=== PATIENT | female | born 1980 | race Caucasian/White ===

== ENCOUNTER 2016-11-19 03:22 | Emergency (ER) | payer BC ==
[~2016-11-19] VITALS: Ht 165.1 cm; Wt 6.5 kg
--- OUTSIDE RECORDS SUMMARY | 2016-11-19 03:26 | XMS REPORT | Summary of Care ---
Author Author Yimi Leong P.T. Organization Unknown Address [address] [place], [place] [id number] Phone Unavailable Care Team Providers Care Patient Relations Director Name Role Phone Monie Mila Unavailable Unavailable Donald Leong P.T. Unavailable Unavailable Shubham Camejo M.D. Unavailable Unavailable Tati Hunt, Jeb Unavailable Unavailable Jeb Duffy Unavailable Unavailable Unavailable Unavailable Functional Status Name Dates Details Functional status health issues are not documented Status: Name Dates Details Cognitive status health issues are not documented Status: Problems Name Dates Details Preventative health care (V70.0, Z00.00) Status: Active Allergic rhinitis (477.9, J30.9) Status: Active Well adult exam (V70.0, Z00.00) Status: Active Frontal sinusitis (473.1, J32.1) Status: Active Acute sinusitis (461.9, J01.90) Status: Active Right shoulder pain (719.41, M25.511) Status: Active Medications Name Dates Details ZyrTEC Allergy 10 MG Oral Capsule 1 q day prn Jeb Duffy M.D. * Start 28-Sep-2013 Active Fluticasone Propionate 50 MCG/ACT Nasal Suspension USE 1 SPRAY IN EACH NOSTRIL TWICE DAILY. * Quantity: 1 Refills: 11 Jeb Duffy M.D. * Start 27-Apr-2015 Active Doxycycline Hyclate 100 MG Oral Tablet TAKE 1 TABLET TWICE DAILY. * Quantity: 10 Refills: 0 Monie Mila * Start 16-May-2015 Active Azithromycin 250 MG Oral Tablet TAKE 2 TABLETS ON DAY 1 THEN TAKE 1 TABLET A DAY FOR 4 DAYS. * Quantity: 1 Refills: 1 Jeb Duffy M.D. * Start 15-Feb-2016 Active Cyclobenzaprine HCl - 10 MG Oral Tablet TAKE 1 TABLET Bedtime PRN muscle spasm * Quantity: 15 Refills: 0 Jace Camejo M.D. * Start 25-May-2016 Active PredniSONE 20 MG Oral Tablet 3tabs daily for 2 days, 2 tabs for 2 days, 1 tab for 2 days, 1/2 tab daily for 4 days * Quantity: 15 Refills: 0 Jace Camejo M.D. * Start 25-May-2016 Active TraMADol HCl - 50 MG Oral Tablet TAKE 1 TABLET EVERY 4 TO 6 HOURS NEEDED FOR PAIN. * Quantity: 25 Refills: 0 Jace Camejo M.D. * Start 25-May-2016 Active Allergies and Adverse Reactions Name Dates Details Amoxicillin TABS (Allergy) Reaction: Anaphylaxis (Severe) Status: Active Past Medical History Name Dates Details History of Back sprain (847.9) Status: Resolved History of sinusitis (V12.69, Z87.09) Status: Resolved Procedures Procedure Dates Details History of Section Procedures not documented Immunization Name Dates Details Diphtheria-Tetanus Toxoids 6.7-5 LFU/0.5ML INJ on: 29-Aug-2000 Family History Name Dates Details Family history of coronary arteriosclerosis (V17.3, Z82.49) Comments: Family History Status: Active Family history of colon cancer (V16.0, Z80.0) Comments: Family History Status: Active Family history of malignant neoplasm of cervix uteri (V16.49, Z80.49) Comments: Family History Status: Active Social History Name Dates Details Unknown if ever smoked Vital Signs Date Test Result Details 25-May-2016 13:05 BP Systolic 132 mm[Hg] Status: Comments: Location: ; Position: BP Diastolic 76 mm[Hg] Status: Comments: Location: ; Position: Temperature 97.7 f Status: Comments: Method: Heart Rate 85 /min Status: Comments: Location: ; Physical Findings 99 Status: Comments: O2 Saturation Results Date Description Value Details Results not documented Plan of Care Name Dates Details Planned Observations Planned Goals not documented Planned Encounters Appointment; Provider: Radha HankinsTYessenia On 13-Jun-2016 16:30 Appointment; Provider: Radha HankinsTYessenia On 11-Jun-2016 16:30 Instructions Name Dates Details Instructions not documented Encounters Appointment; Jace Camejo M.D. Encounter Diagnosis: Problem not documented On 25-May-2016 12:55 Appointment; Jeb Duffy M.D. Encounter Diagnosis: Problem not documented On 15-Feb-2016 13:49 Appointment; Mila Lomax Encounter Diagnosis: Problem not documented On 16-May-2015 17:55 Appointment; Jeb Duffy M.D. Encounter Diagnosis: Problem not documented On 27-Apr-2015 15:00
--- OUTSIDE RECORDS SUMMARY | 2016-11-19 03:27 | XMS REPORT | Summary of Care ---
Author Author Jeb Duffy M.D. Organization Unknown Address [address] [place], [place] [id number] Phone Unavailable Care Team Providers Care Business Analytics Faculty Member Name Role Phone Nae Masterson APRN Unavailable Unavailable Jeb Duffy M.D. Unavailable Unavailable Jeb Duffy PP Unavailable Unavailable Unavailable Functional Status Functional Status Health Issues* Name Dates Details Functional status health issues are not documented Status: Cognitive Status Health Issues* Name Dates Details Cognitive status health issues are not documented Status: Problems Name Dates Details Sinusitis (473.9, J32.9) Status: Active Back sprain (847.9) Status: Active Preventative health care (V70.0, Z00.00) Status: Active Medications Name Dates Details Cyclobenzaprine HCl - 10 MG Oral Tablet 1/2 -1 tablet three times daily as needed for pain. Quantity: 15 Nae Masterson TOOL DISPATCHER* Started 12-Oct-2013 ActiveZyrTEC Allergy 10 MG Oral Capsule 1 q day prn * Refills: 0 Jeb Duffy M.D.* Started 28-Sep-2013 Active Allergies and Adverse Reactions Name Dates Details Amoxicillin TABS Reaction: Anaphylaxis (Severe) Status: Active Procedures Procedure Dates Details History of Section CBC w/ Auto Diff 7150 Ordered:10-Apr-2015 Comprehensive Metabolic Panel 1212 Ordered:10-Apr-2015 Urinalysis, reflex to Micro and Culture ([facility]) 8016 Ordered:Mar-2015 LIPID PROFILE 1184 Ordered:10-Apr-2015 Immunization Name Dates Details Diphtheria-Tetanus Toxoids 6.7-5 LFU/0.5ML Intramuscular Injectable Administered on:29-Aug-2000 Family History Unknown Family Member* Name Dates Details Family history of coronary arteriosclerosis (V17.3, Z82.49) Comments: Family History Status: Active Family history of colon cancer (V16.0, Z80.0) Comments: Family History Status: Active Family history of malignant neoplasm of cervix uteri (V16.49, Z80.49) Comments: Family History Status: Active Social History Smoking Status* Unknown if ever smoked Vital Signs Date Test Result Details No Known Vitals to report Results Date Description Value Details Results not documented Plan of Care Planned Observations* Name Dates Details Planned Goals not documented Goal Planned Encounters* Appointment; Provider: Jeb Duffy On 27-Apr-2015 15:00 Instructions * Instructions not documented Encounters Appointment; Nae Masterson Encounter Diagnosis: Problem not documented On 12-Oct-2013 16:20 Appointment; Jeb Duffy Encounter Diagnosis: Problem not documented On 28-Sep-2013 16:00 Appointment; Jeb Duffy Encounter Diagnosis: Problem not documented On 06-Sep-2013 15:30
--- OUTSIDE RECORDS SUMMARY | 2016-11-19 03:27 | XMS REPORT | Summary of Care ---
Author Author Shannan Mckeon PTA Organization Unknown Address [address] [place], [place] [address] Phone Unavailable Care Team Providers Care Solutions Executive Security Name Role Phone Shannan Mckeon PTA Unavailable Unavailable Mila Lomax Unavailable Unavailable Shubham Camejo M.D. Unavailable Unavailable [...] TWICE DAILY. * Quantity: 10 Refills: 0 Mila Lomax * Start 16-May-2015 Active Azithromycin 250 MG [...] Details Planned Observations Planned Goals not documented Instructions Name Dates Details Instructions not documented Encounters Appointment; Shannan Mckeon PMargaritaTYessenia Encounter Diagnosis: Problem not documented On 11-Jun-2016 16:30 Appointment; Yimi Leong PToni Encounter Diagnosis: Problem not documented On 06-Jun-2016 16:00 Appointment; Jace Camejo M.D. Encounter Diagnosis: Problem not documented On 25-May-2016 12:55 Appointment; Jeb Duffy M.D. Encounter Diagnosis: Problem not documented On 15-Feb-2016 13:49 Appointment; Mila Lomax Encounter Diagnosis: Problem not documented On 16-May-2015 17:55 Appointment; Jeb Duffy M.D. Encounter Diagnosis: Problem not documented On 27-Apr-2015 15:00
--- OUTSIDE RECORDS SUMMARY | 2016-11-19 03:27 | XMS REPORT | Summary of Care ---
Author Author Bashir Hunt, Jace Jalloh Organization Unknown Address Unknown Phone Unavailable Care Team Providers Care Combination Technician Name Role Phone Mila Lomax Unavailable Unavailable Shubham Camejo M.D. Unavailable Unavailable Jeb Duffy M.D. Unavailable Unavailable Jeb Duffy Unavailable Unavailable Unavailable [...] TWICE DAILY. * Quantity: 10 Refills: 0 Kindracammie Mila * Start 16-May-2015 Active Azithromycin 250 [...] 4 days * Quantity: 15 Refills: 0 Bashir GilbertJace * Start 25-May-2016 Active TraMADol HCl - 50 MG Oral Tablet TAKE 1 TABLET EVERY 4 TO 6 HOURS NEEDED FOR PAIN. * Quantity: 25 Refills: 0 Bashir GilbertJace * Start 25-May-2016 Active Allergies and Adverse [...] Details Planned Observations Planned Goals not documented Interventions Provided Medication Changes* Cyclobenzaprine HCl - 10 MG Oral Tablet - Start * PredniSONE 20 MG Oral Tablet - Start * TraMADol HCl - 50 MG Oral Tablet - Start Instructions Name Dates Details Instructions not documented Encounters Appointment; Jeb Duffy M.D. Encounter Diagnosis: Problem not documented On 15-Feb-2016 13:49 Appointment; Mila Lomax Encounter Diagnosis: Problem not documented On 16-May-2015 17:55 Appointment; Jeb Duffy M.D. Encounter Diagnosis: Problem not documented On 27-Apr-2015 15:00
--- OUTSIDE RECORDS SUMMARY | 2016-11-19 03:27 | XMS REPORT | Continuity of Care Document ---
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 Visit Date/Time Discharge Status Pt. Type Provider Facility Loc./Unit Complaint [id number] 05/01/2015 17:58:00 05/01/2015 23: 59:59 [facility]LS [facility]
--- OUTSIDE RECORDS SUMMARY | 2016-11-19 03:27 | XMS REPORT | Summary of Care ---
Author Author Jim Hunt, Hunter Downey Unknown Address Unknown Phone Unavailable Care Team Providers Care Side Boss Name Role Phone Jai Hunt, Raheem Unavailable Unavailable Hunter Fernandez M.D. Unavailable Unavailable Jeb Duffy M.D. Unavailable Unavailable Jeb Duffy Unavailable Unavailable Unavailable Unavailable Functional Status Name Dates Details Functional status health issues are not documented Status: Name Dates Details Cognitive status health issues are not documented Status: Problems Name Dates Details Preventative health care (V70.0, Z00.00) Status: Active Well adult exam (V70.0, Z00.00) Status: Active Frontal sinusitis (473.1, J32.1) Status: Active Acute sinusitis (461.9, J01.90) Status: Active Right shoulder pain (719.41, M25.511) Status: Active Acute bronchitis due to other specified organisms (466.0, J20.8) Status: Active Acute tonsillitis (463, J03.90) Status: Active Abdominal pain (789.00, R10.9) Status: Active Allergic rhinitis (477.9, J30.9) Status: Active Diarrhea (787.91, R19.7) Status: Active Nausea and vomiting (787.01, R11.2) Status: Active Abdominal pain, RUQ (right upper quadrant) (789.01, R10.11) Status: Active Medications Name Dates Details Omeprazole 40 MG Oral Capsule Delayed Release TAKE 1 CAPSULE Daily Quantity: 1 Jeb Duffy M.D. * Start 24-Oct-2016 Active 30 Capsule Delayed Release Bottle Ondansetron 8 MG Oral Tablet Dispersible 1 tab po q 6 hours prin nausea or vomiting * Quantity: 10 Refills: 0 Wale Vergara M.D. Start 21-Oct-2016 Active Fluticasone Propionate 50 MCG/ACT Nasal Suspension USE 1 SPRAY IN EACH NOSTRIL TWICE DAILY. * Quantity: 1 Refills: 11 Jeb Duffy M.D. * Start 27-Apr-2015 Active ZyrTEC Allergy 10 MG Oral Capsule 1 q day prn * Refills: 0 Jeb Duffy M.D. * Start 28-Sep-2013 Active Allergies and Adverse Reactions Name Dates Details Amoxicillin TABS (Allergy) Reaction: Anaphylaxis (Severe) Status: Active Past Medical History Name Dates Details Allergic rhinitis (477.9, J30.9) Status: Active History of Back sprain (847.9) Status: Resolved History of sinusitis (V12.69, Z87.09) Status: Resolved Procedures Procedure Dates Details History of Section Lipase 1275 Ordered: 21-Oct-2016 CBC w/ Auto Diff 7150 Ordered: 21-Oct-2016 Comprehensive Metabolic Panel 1212 Ordered: 21-Oct-2016 AMYLASE 1250 Ordered: 21-Oct-2016 HEPATOBILIARY ( [facility]IDA) Ordered: 08-Nov-2016 Immunization Name Dates Details Diphtheria-Tetanus Toxoids 6.7-5 [...] smoked Vital Signs Date Test Result Details 30-Oct-2016 13:15 BP Systolic 106 mm[Hg] Status: Comments: Location: ; Position: BP Diastolic 82 mm[Hg] Status: Comments: Location: ; Position: Temperature 98.5 f Status: Comments: Method: Heart Rate 94 /min Status: Comments: Location: ; Physical Findings 16 Status: Comments: Respiration Height 65 in Status: Weight 238 lb Status: Physical Findings 97 Status: Comments: O2 Saturation Body Mass Index Calculated 39.61 kg/m2 Status: Body Surface Area Calculated 2.13 m2 Status: 23-Oct-2016 14:08 BP Systolic 116 mm[Hg] Status: Comments: Location: ; Position: BP Diastolic 78 mm[Hg] Status: Comments: Location: ; Position: Temperature 98.8 f Status: Comments: Method: Heart Rate 104 /min Status: Comments: Location: ; Physical Findings 18 Status: Comments: Respiration Height 65 in Status: Weight 237 lb Status: Physical Findings 98 Status: Comments: O2 Saturation Body Mass Index Calculated 39.44 kg/m2 Status: Body Surface Area Calculated 2.13 m2 Status: 21-Oct-2016 17:22 BP Systolic 108 mm[Hg] Status: Comments: Location: ; Position: BP Diastolic 68 mm[Hg] Status: Comments: Location: ; Position: Temperature 99.1 f Status: Comments: Method: Heart Rate 102 /min Status: Comments: Location: ; Height 65 in Status: Weight 238 lb Status: Physical Findings 98 Status: Comments: O2 Saturation Body Mass Index Calculated 39.61 kg/m2 Status: Body Surface Area Calculated 2.13 m2 Status: Results Date Description Value Details 22-Oct-2016 13:45 ULTRASOUND GALL BLADDER Comments: Exam Date: 10/22/2016 13 :25Dictation Date: 10/22/2016 13:45 XS GALL BLADDER 23-Oct-2016 15:13 CBC w/ Auto Diff 7150 WBC 11.8 K/uL (Above high threshold) Range: 4.5-11.0 RBC 4.54 mil/uL Range: 3.60-5.00 HGB 13.8 g/dL Range: 12.0-16.0 HCT 41.4 % Range: 36.0-48.0 MCV 91.3 fL Range: 80.0-99.0 MCH 30.5 pg Range: 27.3-32.5 MCHC 33.4 % Range: 32.0-36.0 RDW 13.9 % Range: 11.6-14.8 PLATELETS 413 K/uL (Above high threshold) Range: 150-400 MPV 7.7 fL Range: 6.0-11.0 %NEUTRO 61.4 % Range: 37.0-80.0 %LYMPHS 27.8 % Range: 13.0-50.0 %MONO 5.0 % Range: 0.0-12.0 %EOS 3.7 % Range: 0.0-7.0 %BASO 0.6 % Range: 0.0-2.5 %RUSSELL 1.5 % Range: 0.0-5.0 NEUTRO 7.2 K/uL (Above high threshold) Range: 2.0-6.9 LYMPHS 3.3 K/uL Range: 0.6-3.4 MONOS 0.6 K/uL Range: 0.0-0.9 EOS 0.4 K/uL Range: 0.0-0.7 BASO 0.1 K/uL Range: 0.0-0.2 15:20 Urinalysis, reflex to Micro and Culture ([facility]) 8016 Comments: Testing performed by [facility], [address] [place] [address] pH 5.5 Range: 5.0-7.5 SP GRAVITY 1.030 Range: 1.010-1.030 APPEARANCE Cloudy (Abnormal) Range: Clear COLOR Dk Yellow (Abnormal) Range: Straw-Yellow PROTEIN 15 mg/dL (Abnormal) Range: Negative-Trace GLUCOSE Negative mg/dL Range: Negative KETONES +/- mg/dL (Abnormal) Range: Negative BILIRUBIN 1+ (Abnormal) Range: Negative BLOOD Negative Range: Negative UROBIL 0.2 EU/dL Range: 0.2-1.0 NITRITE Negative Range: Negative LEUKOCYTES 1+ (Abnormal) Range: Negative 15:20 URINE TEST 8010 Comments: Testing performed by [facility], [address] [place] [address] Testing performed by [facility], [address] [place] [address] URINE TEST Negative Range: Negative Comments: Internal Control: Acceptable----- 15:33 C REACTIVE PROTEIN, CRP 2030 C REACTIVE PROTEIN 0.2 mg/dL Range: 0.0-0.9 15:33 Comprehensive Metabolic Panel 1212 SODIUM 138 mmol/L Range: 133-144 POTASSIUM 3.9 mmol/L Range: 3.5-5.1 CHLORIDE 105 mmol/L Range: 98-110 CARBON DIOXIDE 24.6 mmol/L Range: 23.0-33.0 ANION GAP 8 mmol/L Range: 6-16 BUN 10 mg/dL Range: 7-18 CREATININE, SERUM 0.74 mg/dL Range: 0.55-1.02 BUN:CREATININE RATIO 14 EST GFR, >60 ml/min Range: >60 EST GFR, NON-AFR BARBADIAN >60 ml/min Range: >60 Comments: EST GFR is reported in ml/min per 1.73 m2 of body surface area. ----- GLUCOSE 106 mg/dL (Above high threshold) Range: 70-100 ALK PHOSPHATASE 67 U/L Range: 46-116 TOTAL BILIRUBIN 0.20 mg/dL Range: 0.20-1.00 AST 20 U/L Range: 8-35 ALT 36 U/L Range: 14-59 ALBUMIN 3.7 g/dL Range: 3.4-5.0 TOTAL PROTEIN 8.2 g/dL Range: 6.4-8.2 A/G RATIO 0.8 units (Below low threshold) Range: 1.0-1.8 CALCIUM 8.8 mg/dL Range: 8.5-10.1 15:33 AMYLASE 1250 AMYLASE 49 U/L Range: 25-115 15:33 Lipase 1275 LIPASE 103 U/L Range: 73-393 16:22 Urine Microscopic UMIC WBC 3-5 /HPF Range: 0-5 RBC 0-2 /HPF Range: 0-2 MUCUS 3+ /LPF (Abnormal) Range: Negative-2+ BACTERIA 1+ /HPF (Abnormal) Range: Negative-Trace EPITH 6-10 /HPF Range: 0-10 U YEAST Present (Abnormal) Range: Absent -Oct-2016 14:19 CBC w/ Auto Diff 7150 WBC 7.4 K/uL Range: 4.5-11.0 RBC 4.31 mil/uL Range: 3.60-5.00 HGB 13.3 g/dL Range: 12.0-16.0 HCT 40.5 % Range: 36.0-48.0 MCV 94.1 fL Range: 80.0-99.0 MCH 30.8 pg Range: 27.3-32.5 MCHC 32.7 % Range: 32.0-36.0 RDW 14.0 % Range: 11.6-14.8 PLATELETS 340 K/uL Range: 150-400 MPV 7.3 fL Range: 6.0-11.0 %NEUTRO 53.9 % Range: 37.0-80.0 %LYMPHS 35.0 % Range: 13.0-50.0 %MONO 4.7 % Range: 0.0-12.0 %EOS 4.6 % Range: 0.0-7.0 %BASO 0.7 % Range: 0.0-2.5 %RUSSELL 1.1 % Range: 0.0-5.0 NEUTRO 4.0 K/uL Range: 2.0-6.9 LYMPHS 2.6 K/uL Range: 0.6-3.4 MONOS 0.4 K/uL Range: 0.0-0.9 EOS 0.3 K/uL Range: 0.0-0.7 BASO 0.1 K/uL Range: 0.0-0.2 14:43 C REACTIVE PROTEIN, CRP 2030 C REACTIVE PROTEIN 0.3 mg/dL Range: 0.0-0.9 14:43 AMYLASE 1250 AMYLASE 40 U/L Range: 25-115 14:43 Comprehensive Metabolic Panel 1212 SODIUM 142 mmol/L Range: 133-144 POTASSIUM 4.2 mmol/L Range: 3.5-5.1 CHLORIDE 108 mmol/L Range: 98-110 CARBON DIOXIDE 26.5 mmol/L Range: 23.0-33.0 ANION GAP 8 mmol/L Range: 6-16 BUN 6 mg/dL (Below low threshold) Range: 7-18 CREATININE, SERUM 0.82 mg/dL Range: 0.55-1.02 BUN:CREATININE RATIO 7 EST GFR, >60 ml/min Range: >60 EST GFR, NON-AFR BARBADIAN >60 ml/min Range: >60 Comments: EST GFR is reported in ml/min per 1.73 m2 of body surface area. ----- GLUCOSE 91 mg/dL Range: 70-100 ALK PHOSPHATASE 62 U/L Range: 46-116 TOTAL BILIRUBIN 0.30 mg/dL Range: 0.20-1.00 AST 24 U/L Range: 8-35 ALT 28 U/L Range: 14-59 ALBUMIN 3.5 g/dL Range: 3.4-5.0 TOTAL PROTEIN 7.4 g/dL Range: 6.4-8.2 A/G RATIO 0.9 units (Below low threshold) Range: 1.0-1.8 CALCIUM 8.8 mg/dL Range: 8.5-10.1 14:45 Urinalysis, Reflex to Microscopic or Culture PRN 8005 pH 5.5 Range: 5.0-7.5 SP GRAVITY 1.020 Range: 1.010-1.030 APPEARANCE CLEAR Range: Clear COLOR DKYELLOW (Abnormal) Range: Straw-Yellow PROTEIN NEGATIVE mg/dL Range: Negative-Trace GLUCOSE NEGATIVE mg/dL Range: Negative KETONE NEGATIVE mg/dL Range: Negative BILIRUB SMALL (Abnormal) Range: Negative BLOOD SMALL (Abnormal) Range: Negative UROBIL 1.0 EU/dL Range: 0.2-1.0 NITRITE NEGATIVE Range: Negative LEUK NEGATIVE Range: Negative 14:45 Urine Microscopic UMIC WBC 0-2 /HPF Range: 0-5 MUCUS 1+ /LPF Range: Negative-2+ EPITH 0-2 /HPF Range: 0-[address] 15:[address] AB/ PEL WITH IV AND ORAL CONTRAST Comments: Exam Date: 10/30/2016 14:20Dictation Date: 10/30/2016 15:06 XC AB/PEL 45 MIN PREP 15:08 H. Pylori IgG, Ab 2024 H PYLORI ANTIBODY Negative Range: Negative Plan of Care Name Dates Details Planned Observations Planned Goals not documented Planned Encounters Appointment; Provider: Vanita Brown On 18-Nov-2016 11:15 Instructions Name Dates Details Instructions not documented Encounters Appointment; Hernando Rooney Encounter Diagnosis: Problem not documented On 08-Nov-2016 08:30 Appointment; Jeb Duffy M.D. Encounter Diagnosis: Problem not documented On 30-Oct-2016 13:15 Appointment; Jeb Duffy M.D. Encounter Diagnosis: Problem not documented On 23-Oct-2016 13:45 Appointment; Wale Vergara M.D. Encounter Diagnosis: Problem not documented On 21-Oct-2016 16:49 Appointment; Jeb Duffy M.D. Encounter Diagnosis: Problem not documented On 30-Sep-2016 16:30 Appointment; Jeb Duffy M.D. Encounter Diagnosis: Problem not documented On 16-Jul-2016 10:00 Appointment; Gris Gamboa A.P.R.N. Encounter Diagnosis: Problem not documented On 09-Jul-2016 17:14 Appointment; Shannan Mckeon P.TYessenia Encounter Diagnosis: Problem not documented On 13-Jun-2016 16:30 Appointment; Shannan Mckeon P.TYessenia Encounter Diagnosis: Problem not documented On 11-Jun-2016 16:30 Appointment; Yimi Leong P.T. Encounter Diagnosis: Problem not documented On 06-Jun-2016 16:00 Appointment; Jace Camejo M.D. Encounter Diagnosis: Problem not documented On 25-May-2016 12:55 Appointment; Jeb Duffy M.D. Encounter Diagnosis: Problem not documented On 15-Feb-2016 13:49 Appointment; Mila Lomax Encounter Diagnosis: Problem not documented On 16-May-2015 17:55 Appointment; Jeb Duffy M.D. Encounter Diagnosis: Problem not documented On 27-Apr-2015 15:00
--- OUTSIDE RECORDS SUMMARY | 2016-11-19 03:28 | XMS REPORT | Summary of Care ---
Author Author [facility] Organization [facility] Address [address] [place] [address] Phone Care Team Providers Care Coach Mechanic Name Role Phone Jai Hunt, L Unavailable Unavailable Yani Hunt, User Unavailable Unavailable Tati Hunt, Jeb Unavailable Unavailable [...] Active Allergic rhinitis (477.9, J30.9) Status: Active Abdominal pain, RUQ (right upper quadrant) (789.01, R10.11) Status: Active Diarrhea (787.91, R19.7) Status: Active Nausea and vomiting (787.01, R11.2) Status: Active Medications Name Dates Details ZyrTEC Allergy 10 MG Oral Capsule 1 q day prn Jeb Duffy M.D. * Start 28-Sep-2013 Active Fluticasone Propionate 50 MCG/ACT Nasal Suspension USE 1 SPRAY IN EACH NOSTRIL TWICE DAILY. * Quantity: 1 Refills: 11 Jeb Duffy M.D. * Start 27-Apr-2015 Active Ondansetron 8 MG Oral Tablet Dispersible 1 tab po q 6 hours prin nausea or vomiting * Quantity: 10 Refills: 0 Thode M.D.Wale * Start 21-Oct-2016 Active Omeprazole 40 MG Oral Capsule Delayed Release TAKE 1 CAPSULE Daily * Quantity: 1 Refills: 11 Tati Hunt, Jeb * Start 24-Oct-2016 Active 30 Capsule Delayed Release Bottle Allergies and Adverse Reactions Name Dates Details Amoxicillin TABS (Allergy) Reaction: Anaphylaxis (Severe) Status: Active Past Medical History Name Dates Details Allergic rhinitis (477.9, J30.9) Status: Active History of Back sprain (847.9) Status: Resolved History of sinusitis (V12.69, Z87.09) Status: Resolved Procedures Procedure Dates Details History of Section CBC w/ Auto Diff 7150 Ordered: 21-Oct-2016 Comprehensive Metabolic Panel 1212 Ordered: 21-Oct-2016 AMYLASE 1250 Ordered: 21-Oct-2016 Lipase 1275 Ordered: 21-Oct-2016 Immunization Name Dates Details Diphtheria-Tetanus Toxoids 6.7-5 [...] smoked Vital Signs Date Test Result Details 23-Oct-2016 14:08 BP Systolic 116 mm[Hg] Status: [...] Body Surface Area Calculated 2.13 m2 Status: 30-Sep-2016 16:36 BP Systolic 124 mm[Hg] Status: Comments: Location: ; Position: BP Diastolic 86 mm[Hg] Status: Comments: Location: ; Position: Temperature 97.9 f Status: Comments: Method: Heart Rate 108 /min Status: Comments: Location: ; Physical Findings 97 Status: Comments: O2 Saturation Results Date Description Value Details 30-Sep-2016 16:41 STREPTOCOCCUS SCREEN WITH CULTURE 5040 Comments: *Culture in progress*Testing performed by [facility], [address] [place] [address] Testing performed by [facility], [address] [place] [address] *STREPTOCOCCUS SCREEN NEGATIVE for Streptococcus pyogenes Range: NEGATIVE for Streptococcus pyogenes 02-Oct-2016 14:13 THROAT CULTURE [id number] Comments: [employer] performed at: [facility], [address] [place], [address], Structural Steel Shop Supervisor: Zelalem Duke D.O., MPHQuest Collection Date/Time: [id number] Results Received Date/Time: [id number] Reported Date/Time: [id number] CULTURE, THROAT SEE NOTE Comments: CULTURE, THROAT MICRO NUMBER: [id number] TEST STATUS: FINAL SPECIMEN SOURCE: THROAT SPECIMEN QUALITY: ADEQUATE RESULT: No oropharyngeal pathogens recovered.[UT] ----- 22-Oct-2016 13:45 ULTRASOUND GALL BLADDER Comments: Exam [...] 15:20 Urinalysis, reflex to Micro and Culture ([facility]) 4516 Comments: Testing performed by [facility], [address] [place] [address] pH 5.5 Range: 5.0-7.5 SP GRAVITY 1.030 [...] URINE TEST 8010 Comments: Testing performed by [facility], [address] [place] [address] Testing performed by [facility], [address] [place] [address] URINE TEST Negative Range: Negative Comments: Internal [...] >60 ml/min Range: >60 EST GFR, NON-AFR POLISH >60 ml/min Range: >60 Comments: EST GFR [...] 0-10 U YEAST Present (Abnormal) Range: Absent Plan of Care Name Dates Details Planned Observations Planned Goals not documented Planned Encounters Appointment; Provider: Vanita Brown On 11-Nov-2016 14:30 Appointment; Provider: Jeb Duffy M.D. On 30-Oct-2016 13:15 Instructions Name Dates Details Instructions not documented [...]
--- OUTSIDE RECORDS SUMMARY | 2016-11-19 03:28 | XMS REPORT | Summary of Care ---
Author Author Shannan Mckeon PTA Organization Unknown Address [address] [place], [place] [id number] Phone Unavailable Care Team Providers Care Sales Outfitter Name Role Phone Shannan Mckeon PTA Unavailable [...] Goals not documented Planned Encounters Appointment; Provider: Shannan Mckeon P.T.A. On 13-Jun-2016 16:30 Instructions Name Dates Details Instructions not documented Encounters Appointment; Yimi Leong P.T. Encounter Diagnosis: Problem [...]
--- OUTSIDE RECORDS SUMMARY | 2016-11-19 03:28 | XMS REPORT | Summary of Care ---
Author Author Jeb Duffy M.D. Organization Unknown Address [address], [place] [id number] Phone Unavailable Care Team Providers Care Supervisor Tile [employer] Mottle Name Role Phone Jeb Duffy M.D. Unavailable Unavailable Jeb Duffy [...] Well adult exam (V70.0, Z00.00) Status: Active Medications Name Dates Details ZyrTEC Allergy 10 MG Oral Capsule 1 q day prn Jeb Duffy M.D.* Started 28-Sep-2013 ActiveFluticasone Propionate 50 MCG/ACT Nasal Suspension USE 1 SPRAY IN EACH NOSTRIL TWICE DAILY. * Quantity: 1 Refills: 11 Jeb Duffy M.D.* Started 27-Apr-2015 Active Allergies and Adverse Reactions Name Dates Details Amoxicillin TABS Reaction: Anaphylaxis (Severe) Status: Active Past Medical [...] smoked Vital Signs Date Test Result Details 27-Apr-2015 14:59 BP Systolic 120 mm[Hg] Status: BP Diastolic 78 mm[Hg] Status: Temperature 99.2 f Status: Heart Rate 84 /min Status: Respiration Rate 16 /min Status: Height 65 in Status: Weight 213 lb Status: Body Mass Index Calculated 35.45 kg/m2 Status: Body Surface Area Calculated 2.03 m2 Status: Results Date Description Value Details 26-Apr-2015 07:54 Urinalysis, reflex to Micro and Culture ([facility]) 8016 Comments: Fastin hours pH 6.5 (Better) Range: 5.0-7.5 SP GRAVITY 1.020 (Better) Range: 1.010-1.030 APPEARANCE Clear (Better) Range: Clear COLOR Yellow (Better) Range: Straw-Yellow PROTEIN Negative mg/dL (Better) Range: Negative-Trace GLUCOSE Negative mg/dL (Better) Range: Negative KETONES Negative mg/dL (Better) Range: Negative BILIRUBIN Negative (Better) Range: Negative BLOOD Negative (Better) Range: Negative UROBIL 0.2 EU/dL (Better) Range: 0.2-1.0 NITRITE Negative (Better) Range: Negative LEUKOCYTES Negative (Better) Range: Negative 08:56 CBC w/ Auto Diff 7150 Comments: Fastin hours WBC 9.6 K/uL (Better) Range: 4.5-11.0 RBC 4.35 mil/uL (Better) Range: 3.60-5.00 HGB 13.1 g/dL (Better) Range: 12.0-16.0 HCT 40.3 % (Better) Range: 36.0-48.0 MCV 92.7 fL (Better) Range: 80.0-99.0 MCH 30.1 pg (Better) Range: 27.3-32.5 MCHC 32.5 % (Better) Range: 32.0-36.0 RDW 12.8 % (Better) Range: 11.6-14.8 PLATELETS 367 K/uL (Better) Range: 150-400 MPV 8.4 fL (Better) Range: 6.0-11.0 %NEUTRO 51.0 % (Better) Range: 37.0-80.0 %LYMPHS 35.6 % (Better) Range: 13.0-50.0 %MONO 5.6 % (Better) Range: 0.0-12.0 %EOS 6.0 % (Better) Range: 0.0-7.0 %BASO 0.7 % (Better) Range: 0.0-2.5 %RUSSELL 1.2 % (Better) Range: 0.0-5.0 NEUTRO 4.9 K/uL (Better) Range: 2.0-6.9 LYMPHS 3.4 K/uL (Better) Range: 0.6-3.4 MONOS 0.5 K/uL (Better) Range: 0.0-0.9 EOS 0.6 K/uL (Better) Range: 0.0-0.7 BASO 0.1 K/uL (Better) Range: 0.0-0.2 09:37 Comprehensive Metabolic Panel 1212 Comments: Fastin hours SODIUM 136 mmol/L (Better) Range: 133-144 POTASSIUM 3.9 mmol/L (Better) Range: 3.5-5.1 CHLORIDE 100 mmol/L (Better) Range: 98-110 CARBON DIOXIDE 25.8 mmol/L (Better) Range: 23.0-33.0 ANION GAP 10 mmol/L (Better) Range: 6-16 BUN 7 mg/dL (Better) Range: 7-18 CREATININE, SERUM 0.72 mg/dL (Better) Range: 0.55-1.02 Comments: Please note new reference ranges effective 2014.----- BUN:CREATININE RATIO 10 (Better) EST GFR, >60 ml/min (Better) Range: >60 EST GFR, NON-AFR TUNISIAN >60 ml/min (Better) Range: >60 Comments: EST GFR is reported in ml/min per 1.73 m2 of body surface area. For -[place], please multiple result by 1.2.----- GLUCOSE 92 mg/dL (Better) Range: 70-100 ALK PHOSPHATASE 61 U/L (Better) Range: 46-116 TOTAL BILIRUBIN 0.40 mg/dL (Better) Range: 0.20-1.00 AST 15 U/L (Better) Range: 8-35 ALT 26 U/L (Better) Range: 14-59 Comments: Please note new reference ranges. Effective 09/08/2014.----- ALBUMIN 3.5 g/dL (Better) Range: 3.4-5.0 TOTAL PROTEIN 7.4 g/dL (Better) Range: 6.4-8.2 A/G RATIO 0.9 units (Below low threshold) Range: 1.0-1.8 CALCIUM 8.6 mg/dL (Better) Range: 8.5-10.1 09:37 LIPID PROFILE 1184 Comments: Fastin hours CHOLESTEROL 119 mg/dL (Better) Range: <200 TRIGLYCERIDES 99 mg/dL (Better) Range: 30-200 HDL Cholesterol 58 mg/dL (Better) Range: >39 NON HDL CHOLESTEROL 61 (Better) CARDIAC RSK FACTOR 2.1 units (Below low threshold) Range: 4.4-5.0 LDL - CALCULATED 41 mg/dL (Better) Range: 0-130 Plan of Care Planned Observations* Name Dates Details Planned Goals not documented Goal Instructions * Instructions not documented Encounters Appointment; Jeb Duffy Encounter Diagnosis: Problem not documented On 27-Apr-2015 15:00 Appointment; Nae Masterson Encounter Diagnosis: Problem not documented On 12-Oct-2013 16:20 Appointment; Jeb Duffy Encounter Diagnosis: Problem not documented On 28-Sep-2013 16:00 Appointment; Jeb Duffy Encounter Diagnosis: Problem not documented On 06-Sep-2013 15:30
--- OUTSIDE RECORDS SUMMARY | 2016-11-19 03:28 | XMS REPORT | Summary of Care ---
Author Author Basihr Hunt, Jace Jalloh Organization Unknown Address Unknown Phone Unavailable Care Team Providers Care Rigging And Controls Aircraft Mechanic Name Role Phone Mila Lomax Unavailable Unavailable [...]
--- OUTSIDE RECORDS SUMMARY | 2016-11-19 03:28 | XMS REPORT | Summary of Care ---
Author Author Wale Vergara M.D. Organization Unknown Address Unknown Phone Unavailable Care Team Providers Care Corporate Recruiter Name Role Phone Raheem Vergara M.D. Unavailable Unavailable Jeb Duffy M.D. Unavailable [...] Active Acute tonsillitis (463, J03.90) Status: Active Nausea and vomiting (787.01, R11.2) Status: Active Diarrhea (787.91, R19.7) Status: Active Abdominal pain (789.00, R10.9) Status: Active Medications Name Dates Details ZyrTEC [...] Quantity: 10 Refills: 0 Wale Vergara M.D. * Start 21-Oct-2016 Active Diphenoxylate-Atropine 2.5-0.025 MG Oral Tablet TAKE 1 TABLET AFTER EACH LOOSE STOOL NOT TO EXCEED 8 TABLETS PER DAY. * Quantity: 20 Refills: 0 Jai Hunt Wale Raheem * Start 21-Oct-2016 End 24-Oct-2016 Active Allergies and Adverse Reactions Name Dates [...] 1250 Ordered: 21-Oct-2016 Lipase 1275 Ordered: 21-Oct-2016 ULTRASOUND GALL BLADDER Ordered: 21-Oct-2016 Immunization Name Dates Details Diphtheria-Tetanus [...] smoked Vital Signs Date Test Result Details 21-Oct-2016 17:22 BP Systolic 108 mm[Hg] Status: [...] 5040 Comments: *Culture in progress*Testing performed by [facility], [address] [place] [address] Testing performed by [facility], [address] [place] [address], [place] [address] *STREPTOCOCCUS SCREEN NEGATIVE for Streptococcus pyogenes Range: NEGATIVE for Streptococcus pyogenes 02-Oct-2016 14:13 THROAT CULTURE [id number] Comments: [facility] performed at: [facility], [address] [place], [address], Clinic Scheduler: Zelalem Duke D.O., MPHQuest Collection Date/Time: [id number] Results Received Date/Time: [id number] Reported Date/Time: CULTURE, THROAT SEE NOTE Comments: CULTURE, THROAT MICRO NUMBER: [id number] TEST STATUS: FINAL SPECIMEN SOURCE: THROAT SPECIMEN QUALITY: ADEQUATE RESULT: No oropharyngeal pathogens recovered.[CT] ----- Plan of Care Name Dates Details Planned Observations Planned Goals not documented Interventions Provided Medication Changes* Diphenoxylate-Atropine 2.5-0.025 MG Oral Tablet - Start * Ondansetron 8 MG Oral Tablet Dispersible - Start Labs/Procedures/Imaging* AMYLASE 1250; To be Done: 21 Oct 2016 * CBC w/ Auto Diff 7150; To be Done: 21 Oct 2016 * Comprehensive Metabolic Panel 1212; To be Done: 21 Oct 2016 * Lipase 1275; To be Done: 21 Oct 2016 * ULTRASOUND GALL BLADDER; To be Done: 21 Oct 2016 Instructions Name Dates Details Instructions not documented Encounters Appointment; Jeb Duffy M.D. Encounter Diagnosis: Problem not documented On 30-Sep-2016 16:30 Appointment; Jeb Duffy M.D. Encounter Diagnosis: Problem not documented On 16-Jul-2016 10:00 Appointment; Gris Gamboa A.P.R.N. Encounter Diagnosis: Problem not documented On 09-Jul-2016 17:14 Appointment; Shannan Mckeon, P.T.Luisito Encounter Diagnosis: Problem not documented On 13-Jun-2016 16:30 Appointment; Shannan Mckeon, P.T.A. Encounter Diagnosis: Problem not documented On 11-Jun-2016 [...]
--- OUTSIDE RECORDS SUMMARY | 2016-11-19 03:28 | XMS REPORT | Summary of Care ---
Author Author Jeb Duffy M.D. Organization Unknown Address [address], [place] [id number] Phone Unavailable Care Team Providers Care Library Science Professor Name Role Phone Raheem Vergara M.D. Unavailable [...] 0 Wale Vergara M.D. Start 21-Oct-2016 Active Omeprazole 40 MG Oral Capsule Delayed Release TAKE 1 CAPSULE Daily * Quantity: 1 Refills: 11 Felton Duffy M.D.ew * Start 24-Oct-2016 Active 30 Capsule Delayed [...] 5040 Comments: *Culture in progress*Testing performed by [facility], [address] [place] [address] Testing performed by [facility], [address] [place] [address] *STREPTOCOCCUS SCREEN NEGATIVE for Streptococcus pyogenes Range: NEGATIVE for Streptococcus pyogenes 02-Oct-2016 14:13 THROAT CULTURE [id number] Comments: [employer] performed at: [facility], [address] [place] [address], [address], Lead Cargoman: Zelalem Duke D.O., MPHQuest Collection Date/Time: [id number] Results Received Date/Time: [id number] Reported Date/Time: [id number] CULTURE, THROAT SEE NOTE Comments: CULTURE, THROAT MICRO NUMBER: [id number] TEST STATUS: FINAL SPECIMEN SOURCE: THROAT SPECIMEN QUALITY: ADEQUATE RESULT: No oropharyngeal pathogens recovered.[[place]] ----- 22-Oct-2016 13:45 ULTRASOUND GALL BLADDER Comments: [...] 15:20 Urinalysis, reflex to Micro and Culture ([facility]) 8016 Comments: Testing performed by [facility], [address] [place] [address] pH 5.5 Range: 5.0-7.5 SP GRAVITY 1.030 [...] URINE TEST 8010 Comments: Testing performed by [facility], [address] [place] [address] Testing performed by [facility], [address] [place] [address] URINE TEST Negative Range: Negative Comments: Internal [...] >60 ml/min Range: >60 EST GFR, NON-AFR OMANI >60 ml/min Range: >60 Comments: EST GFR [...] Goals not documented Interventions Provided Medication Changes* Omeprazole 40 MG Oral Capsule Delayed Release - Start Instructions Name Dates Details Instructions [...]
--- OUTSIDE RECORDS SUMMARY | 2016-11-19 03:28 | XMS REPORT | Summary of Care ---
Author Author Gris Gamboa APRN Organization Unknown Address [address] [place] [address] Phone Unavailable Care Team Providers Care Oim Architect Name Role Phone Gris Gamboa APRN Unavailable Unavailable Jeb Duffy M.D. Unavailable [...] other specified organisms (466.0, J20.8) Status: Active Medications Name Dates Details ZyrTEC Allergy 10 MG Oral Capsule 1 q day prn Jeb Duffy M.D. * Start 28-Sep-2013 Active Fluticasone Propionate 50 MCG/ACT Nasal Suspension USE 1 SPRAY IN EACH NOSTRIL TWICE DAILY. * Quantity: 1 Refills: 11 Jeb Duffy M.D. * Start 27-Apr-2015 Active Benzonatate 100 MG Oral Capsule TAKE 2 CAPSULES NEEDED UP TO THREE TIMES A DAY * Quantity: 60 Refills: 0 Gris Gamboa APRN * Start 09-Jul-2016 Active LevoFLOXacin 500 MG Oral Tablet TAKE 1 TABLET DAILY UNTIL FINISHED. * Quantity: 10 Refills: 1 Jeb Duffy M.D. * Start 16-Jul-2016 Active PredniSONE 20 MG Oral Tablet two tablets per day for 5 days and 1 tablet per day for 5 days * Quantity: 15 Refills: 0 Jeb Duffy M.D. * Start 16-Jul-2016 Active Allergies and Adverse Reactions Name Dates [...] smoked Vital Signs Date Test Result Details 16-Jul-2016 10:14 BP Systolic 134 mm[Hg] Status: Comments: Location: ; Position: BP Diastolic 82 mm[Hg] Status: Comments: Location: ; Position: Temperature 98.8 f Status: Comments: Method: Heart Rate 76 /min Status: Comments: Location: ; Height 65 in Status: Weight 240 lb Status: Physical Findings 99 Status: Comments: O2 Saturation Body Mass Index Calculated 39.94 kg/m2 Status: Body Surface Area Calculated 2.14 m2 Status: 09-Jul-2016 17:17 BP Systolic 138 mm[Hg] Status: Comments: Location: ; Position: BP Diastolic 84 mm[Hg] Status: Comments: Location: ; Position: Temperature 99.7 f Status: Comments: Method: Heart Rate 107 /min Status: Comments: Location: ; Weight 240 lb Status: Physical Findings 98 Status: Comments: O2 Saturation Body Mass Index Calculated 39.94 kg/m2 Status: Body Surface Area Calculated 2.14 m2 Status: Results Date Description Value Details 16-Jul-2016 11:24 XRay CHEST-PA & LAT Comments: Exam Date: 07/16/2016 10: 45Dictation Date: 07/16/2016 11:24 X CHEST PA & LAT Plan of Care Name Dates Details Planned Observations Planned Goals not documented Interventions Provided Medication Changes* Azithromycin 250 MG Oral Tablet - Completed * Azithromycin 250 MG Oral Tablet - Start * Benzonatate 100 MG Oral Capsule - Start * Cyclobenzaprine HCl - 10 MG Oral Tablet - Completed * Doxycycline Hyclate 100 MG Oral Tablet - Completed * PredniSONE 20 MG Oral Tablet - Completed * TraMADol HCl - 50 MG Oral Tablet - Completed Instructions Name Dates Details Instructions not documented Encounters Appointment; Shannan Mckeon P.TYessenia Encounter Diagnosis: Problem not documented On 13-Jun-2016 16:30 Appointment; Shannan Mckeon P.T.A. Encounter Diagnosis: Problem not documented On [...]
--- OUTSIDE RECORDS SUMMARY | 2016-11-19 03:28 | XMS REPORT | Summary of Care ---
Author Author Jeb Moore Organization Unknown Address [address] [place], [place] [address] Phone Unavailable Care Team Providers Care Deputy Harbormaster Name Role Phone Jai Hunt, L Unavailable Unavailable Jeb Moore Unavailable Unavailable Tati Hunt, Jeb Unavailable Unavailable Jeb Duffy Unavailable Unavailable Unavailable Unavailable Functional Status Name Dates Details Functional status health issues are not documented Status: Name Dates Details Cognitive status health issues are not documented Status: Problems Name Dates Details Well adult exam (V70.0, Z00.00) Status: Active [...] (right upper quadrant) (789.01, R10.11) Status: Active Preventative health care (V70.0, Z00.00) [...] Wale Vergara M.D. * Start 21-Oct-2016 Active Omeprazole 40 MG Oral Capsule Delayed Release TAKE 1 CAPSULE Daily * Quantity: 1 Refills: 11 Tati HuntJeb * Start 24-Oct-2016 Active 30 Capsule Delayed Release Bottle Hyoscyamine Sulfate ER 0.375 MG Oral Tablet Extended Release 12 Hour TAKE ONE TABLET BY MOUTH EVERY 12 HOURS * Quantity: 60 Refills: 2 Jayla WaldronJeb * Start 18-Nov-2016 Active Allergies and Adverse Reactions Name Dates [...] History Name Dates Details Family history of malignant neoplasm of cervix uteri (V16.49, Z80.49) Comments: Family History Status: Active Family history of colon cancer (V16.0, Z80.0) Comments: Family History Status: Active Family history of coronary arteriosclerosis (V17.3, Z82.49) Comments: Family History Status: Active Social History Name Dates Details Unknown if ever smoked Vital Signs Date Test Result Details 18-Nov-2016 11:24 BP Systolic 144 mm[Hg] Status: Comments: Location: ; Position: BP Diastolic 94 mm[Hg] Status: Comments: Location: ; Position: Heart Rate 96 /min Status: Comments: Location: ; Physical Findings 18 Status: Comments: Respiration Weight 234 lb Status: Body Mass Index Calculated 38.94 kg/m2 Status: Body Surface Area Calculated 2.11 m2 Status: 30-Oct-2016 13:15 BP Systolic 106 mm[Hg] Status: [...] Location: ; Position: Temperature 99.1 f Status: Heart Rate 102 /min Status: Comments: Location: [...] 15:20 Urinalysis, reflex to Micro and Culture ([facility]) 8016 Comments: Testing performed by [facility], [address] [place] [address] pH 5.5 Range: 5.0-7.5 SP GRAVITY 1.030 [...] URINE TEST 8010 Comments: Testing performed by [facility], [address] [place] [address] Testing performed by [address] [address] URINE TEST Negative Range: Negative Comments: Internal [...] >60 ml/min Range: >60 EST GFR, NON-AFR HAITIAN >60 ml/min Range: >60 Comments: EST GFR [...] >60 ml/min Range: >60 EST GFR, NON-AFR HAITIAN >60 ml/min Range: >60 Comments: EST GFR [...] 2024 H PYLORI ANTIBODY Negative Range: Negative 14-Nov-2016 09:57 HEPATOBILIARY ( HIDA) Comments: Exam Date: 11/14/2016 07: 51Dictation Date: 11/14/2016 09:57 XN HEPATOBILIARY Plan of Care Name Dates Details Planned Observations Planned Goals not documented Planned Encounters Appointment; Provider: Vanita Brown On 11:00 Interventions Provided Medication Changes* Hyoscyamine Sulfate ER 0.375 MG Oral Tablet Extended Release 12 Hour - Start Instructions Name Dates Details Instructions not documented Encounters Appointment; Hunter Fernandez M.D. Encounter Diagnosis: Problem not documented On 08-Nov-2016 09:00 Appointment; Hernando Rooney Encounter Diagnosis: Problem not [...] documented On 13-Jun-2016 16:30 Appointment; Shannan Mckeon PMargaritaTYessenia Encounter Diagnosis: Problem [...]
--- OUTSIDE RECORDS SUMMARY | 2016-11-19 03:29 | XMS REPORT | Summary of Care ---
Author Author Jeb Duffy M.D. Organization Unknown Address Unknown Phone Unavailable Care Team Providers Care Entrance Guard Name Role Phone Jeb Duffy M.D. Unavailable [...] other specified organisms (466.0, J20.8) Status: Active Sore throat (462, J02.9) Status: Active Acute tonsillitis (463, J03.90) Status: Active Medications Name Dates Details ZyrTEC Allergy 10 MG Oral Capsule 1 q day prn Jeb Duffy M.D. * Start 28-Sep-2013 Active Fluticasone Propionate 50 MCG/ACT Nasal Suspension USE 1 SPRAY IN EACH NOSTRIL TWICE DAILY. * Quantity: 1 Refills: 11 Jeb Duffy M.D. * Start 27-Apr-2015 Active Azithromycin 250 MG Oral Tablet TAKE 2 TABLETS ON DAY 1 THEN TAKE 1 TABLET A DAY FOR 4 DAYS. * Quantity: 1 Refills: 1 Jeb Duffy M.D. Start 30-Sep-2016 Active Allergies and Adverse Reactions Name Dates [...] smoked Vital Signs Date Test Result Details 30-Sep-2016 16:36 BP Systolic 124 mm[Hg] Status: Comments: Location: ; Position: BP Diastolic 86 mm[Hg] Status: Comments: Location: ; Position: Temperature 97.9 f Status: Comments: Method: Heart Rate 108 /min Status: Comments: Location: ; Physical Findings 97 Status: Comments: O2 Saturation Results Date Description Value Details 30-Sep-2016 16:41 STREPTOCOCCUS SCREEN WITH CULTURE 5040 Comments: *Culture in progress*Testing performed by [facility], [address] [place], [place] [address] Testing performed by [facility], [address] [place] [address] *STREPTOCOCCUS SCREEN NEGATIVE for Streptococcus pyogenes Range: NEGATIVE for Streptococcus pyogenes Plan of Care Name Dates Details Planned Observations Planned Goals not documented Interventions Provided Medication Changes* Azithromycin 250 MG Oral Tablet - Start Labs/Procedures/Imaging* STREPTOCOCCUS SCREEN WITH CULTURE 5040; Done: Sep 30 2016 4:26PM Instructions Name Dates Details Instructions not documented Encounters Appointment; Jeb Duffy M.D. Encounter Diagnosis: Problem not documented On 16-Jul-2016 10:00 Appointment; Gris Gamboa A.P.R.N. Encounter Diagnosis: Problem not documented On 09-Jul-2016 17:14 Appointment; Shannan Mckeon, P.T.Luisito Encounter Diagnosis: Problem not documented On 13-Jun-2016 16:30 Appointment; Shannan Mckeon P.T.Luisito Encounter Diagnosis: Problem not documented On 11-Jun-2016 [...]
--- OUTSIDE RECORDS SUMMARY | 2016-11-19 03:29 | XMS REPORT | Summary of Care ---
Author Author Tati Hunt, Jeb Organization Unknown Address Unknown Phone Unavailable Care Team Providers Care Assistant Chief Of Police Name Role Phone Monie Mila Unavailable Unavailable Jeb Duffy M.D. Unavailable Unavailable [...] Active Acute sinusitis (461.9, J01.90) Status: Active Medications Name Dates Details ZyrTEC [...] Jeb Duffy M.D. * Start 15-Feb-2016 Active Allergies and Adverse Reactions Name Dates [...] smoked Vital Signs Date Test Result Details 15-Feb-2016 13:52 BP Systolic 132 mm[Hg] Status: Comments: Location: ; Position: BP Diastolic 80 mm[Hg] Status: Comments: Location: ; Position: Temperature 97.1 f Status: Comments: Method: Heart Rate 97 /min Status: Comments: Location: ; Physical Findings 16 Status: Comments: Respiration Weight 213 lb Status: Physical Findings 99 Status: Comments: O2 Saturation Body Mass Index Calculated 35.45 kg/m2 Status: Body Surface Area Calculated 2.03 m2 Status: Results Date Description Value Details Results not documented Plan of Care Name Dates Details Planned Observations Planned Goals not documented Interventions Provided Medication Changes* Azithromycin 250 MG Oral Tablet - Start Instructions Name Dates Details Instructions not documented Encounters Appointment; Mila Lomax Encounter Diagnosis: Problem not documented On 16-May-2015 17:55 Appointment; Jeb Duffy M.D. Encounter Diagnosis: Problem not documented On 27-Apr-2015 15:00
--- OUTSIDE RECORDS SUMMARY | 2016-11-19 03:29 | XMS REPORT | Summary of Care ---
Author Author Jeb Duffy M.D. Organization Unknown Address [address], [place] [id number] Phone Unavailable Care Team Providers Care Woodworking Bench Carpenter Name Role Phone Raheem Vergara M.D. Unavailable [...] 0 Wale Vergara M.D. Start 21-Oct-2016 Active Diphenoxylate-Atropine 2.5-0.025 MG Oral Tablet TAKE 1 TABLET AFTER EACH LOOSE STOOL NOT TO EXCEED 8 TABLETS PER DAY. * Quantity: 20 Refills: Wale Alcala M.D. Start 21-Oct-2016 End 24-Oct-2016 Active Allergies and Adverse Reactions Name Dates Details Amoxicillin TABS (Allergy) Reaction: Anaphylaxis (Severe) Status: Active Past Medical History Name Dates Details Allergic rhinitis (477.9, J30.9) Status: Active History of Back sprain (847.9) Status: Resolved History of sinusitis (V12.69, Z87.09) Status: Resolved Procedures Procedure Dates Details History of Section C REACTIVE PROTEIN, CRP 2030 Ordered: 23-Oct-2016 CBC w/ Auto Diff 7150 Ordered: 23-Oct-2016 Comprehensive Metabolic Panel 1212 Ordered: 23-Oct-2016 AMYLASE 1250 Ordered: 23-Oct-2016 Lipase 1275 Ordered: 23-Oct-2016 URINE TEST 8010 Ordered: 23-Oct-2016 Lipase 1275 Ordered: 21-Oct-2016 AMYLASE 1250 Ordered: 21-Oct-2016 Comprehensive Metabolic Panel 1212 Ordered: 21-Oct-2016 CBC w/ Auto Diff 7150 Ordered: 21-Oct-2016 Immunization Name Dates Details Diphtheria-Tetanus [...] Body Surface Area Calculated 2.13 m2 Status: 24-Apr-2017 17:22 BP Systolic 108 mm[Hg] Status: Comments: [...] 5040 Comments: *Culture in progress*Testing performed by [facility], [address] [place] [address] Testing performed by [facility], [address] [place] [address] *STREPTOCOCCUS SCREEN NEGATIVE for Streptococcus pyogenes Range: NEGATIVE for Streptococcus pyogenes 02-Oct-2016 14:13 THROAT CULTURE [id number] Comments: Roovyn performed at: [facility], [place] Ro[place], [address] [place] [address], [address], Aircraft Maintenance Engineer: Zelalem Duke D.O., MPHQuest Collection Date/Time: [id number] Results Received Date/Time: [id number] Reported Date/Time: [id number] CULTURE, THROAT SEE NOTE Comments: CULTURE, THROAT MICRO NUMBER: [id number] TEST STATUS: FINAL SPECIMEN SOURCE: THROAT SPECIMEN QUALITY: ADEQUATE RESULT: No oropharyngeal pathogens recovered.[MT] ----- 22-Oct-2016 13:45 ULTRASOUND GALL BLADDER Comments: Exam Date: 10/22/2016 13 :25Dictation Date: 10/22/2016 13:45 XS GALL BLADDER Plan of Care Name Dates Details Planned Observations Planned Goals not documented Interventions Provided Labs/Procedures/Imaging* AMYLASE 1250; To be Done: 23 Oct 2016 * C REACTIVE PROTEIN, CRP 2030; To be Done: 23 Oct 2016 * CBC w/ Auto Diff 7150; To be Done: 23 Oct 2016 * Comprehensive Metabolic Panel 1212; To be Done: 23 Oct 2016 * Lipase 1275; To be Done: 23 Oct 2016 * URINE TEST 8010; To be Done: 23 Oct 2016 Instructions Name Dates Details Instructions not documented Encounters Appointment; Wale Vergara M.D. Encounter Diagnosis: Problem [...]
--- OUTSIDE RECORDS SUMMARY | 2016-11-19 03:29 | XMS REPORT | Summary of Care ---
Author Author Tati Hunt, Jeb Organization Unknown Address Unknown Phone Unavailable Care Team Providers Care Production Gear Cutter Name Role Phone Gris Gamboa APRN Unavailable [...] shoulder pain (719.41, M25.511) Status: Active Acute upper respiratory infection (465.9, J06.9) Status: Active Acute bronchitis due to other [...] Procedures Procedure Dates Details History of Section XRay CHEST-PA & LAT Ordered: 16-Jul-2016 Immunization Name Dates Details Diphtheria-Tetanus Toxoids 6.7-5 [...] Goals not documented Interventions Provided Medication Changes* LevoFLOXacin 500 MG Oral Tablet - Start * PredniSONE 20 MG Oral Tablet - Start Labs/Procedures/Imaging* XRay CHEST-PA & LAT; To be Done: 16 Jul 2016 Instructions Name Dates Details Instructions not documented Encounters Appointment; Gris Gamboa A.P.R.N. Encounter Diagnosis: Problem not documented On 09-Jul-2016 17:14 Appointment; Shannan Mckeon P.T.A. Encounter Diagnosis: Problem not documented On 13-Jun-2016 [...]
--- OUTSIDE RECORDS SUMMARY | 2016-11-19 03:29 | XMS REPORT | Summary of Care ---
Author Author Yimi Leong P.T. Organization Unknown Address [address] [place], [place] [phone] Phone Unavailable Care Team Providers Care Rubber Washer Name Role Phone Monie Mila Unavailable Unavailable [...] Observations Planned Goals not documented Planned Encounters (PT use only) Treatment Plan Appointment; Provider: Radha HankinsTYessenia On 13-Jun-2016 16:30 [...]
--- OUTSIDE RECORDS SUMMARY | 2016-11-19 03:29 | XMS REPORT | Summary of Care ---
Author Author Jeb Duffy M.D. Organization Unknown Address [address], [place] [phone] Phone Unavailable Care Team Providers Care Well Logging Captain Name Role Phone Raheem Vergara M.D. Unavailable [...] Active Diarrhea (787.91, R19.7) Status: Active Abdominal pain, RUQ (right upper quadrant) (789.01, R10.11) Status: Active Nausea and vomiting (787.01, R11.2) [...] CAPSULE Daily * Quantity: 1 Refills: 11 Jeb Duffy M.D. * Start 24-Oct-2016 Active 30 Capsule Delayed Release Bottle Allergies and Adverse Reactions Name Dates Details Amoxicillin TABS (Allergy) Reaction: Anaphylaxis (Severe) Status: Active Past Medical History Name Dates Details Allergic rhinitis (477.9, J30.9) Status: Active History of Back sprain (847.9) Status: Resolved History of sinusitis (V12.69, Z87.09) Status: Resolved Procedures Procedure Dates Details History of Section Upper Endoscopy ( EGD) Pendin30-Oct-2016 CBC w/ Auto Diff 7150 Ordered: 21-Oct-2016 [...] m2 Status: Results Date Description Value Details 02-Oct-2016 14:13 THROAT CULTURE [id number] Comments: Entegrion performed at: [facility], [address] [place], [address], Software Clerk: Zelalem Duke D.O., MPHQuest Collection Date/Time: [id number] Results Received Date/Time: [id number] Reported Date/Time: [id number] CULTURE, THROAT SEE NOTE Comments: CULTURE, THROAT MICRO NUMBER: [id number] TEST STATUS: FINAL SPECIMEN SOURCE: THROAT SPECIMEN QUALITY: ADEQUATE RESULT: No oropharyngeal pathogens recovered.[NJ] ----- 22-Oct-2016 13:45 ULTRASOUND GALL BLADDER Comments: [...] 15:20 Urinalysis, reflex to Micro and Culture ([facility]) 8016 Comments: Testing performed by [facility], [address] [place] [address] pH 5.5 Range: 5.0-7.5 SP GRAVITY 1.030 [...] URINE TEST 8010 Comments: Testing performed by [facility], [address] [place] [address] Testing performed by [facility], [address] [place] [address] URINE TEST Negative Range: Negative Comments: Internal [...] >60 ml/min Range: >60 EST GFR, NON-AFR SOMALI >60 ml/min Range: >60 Comments: EST GFR [...] >60 ml/min Range: >60 EST GFR, NON-AFR SOMALI >60 ml/min Range: >60 Comments: EST GFR [...] of Care Name Dates Details Planned Observations Upper Endoscopy ( EGD) On 30-Oct-2016 Intent Planned Goals not documented Planned Encounters Appointment; Provider: Vanita Brown On 11-Nov-2016 14:30 Appointment; Provider: Schedule Radiology On 30-Oct-2016 14:30 Interventions Provided Labs/Procedures/Imaging* AMYLASE 1250; Done: Oct 30 2016 2:08PM * C REACTIVE PROTEIN, CRP 2030; Done: Oct 30 2016 2:08PM * CBC w/ Auto Diff 7150; Done: Oct 30 2016 2:08PM * Comprehensive Metabolic Panel 1212; Done: Oct 30 2016 2:08PM * H. Pylori IgG, Ab 202; Done: Oct 30 2016 2:08PM * Urinalysis, Reflex to Microscopic or Culture PRN 8005; Done: Oct 30 2016 1: 47PM Instructions Name Dates Details Instructions not documented [...]
--- OUTSIDE RECORDS SUMMARY | 2016-11-19 03:29 | XMS REPORT | Summary of Care ---
Author Author Wale Vergara M.D. Organization Unknown Address Unknown Phone Unavailable Care Team Providers Care Centrifugal Screen Tender Name Role Phone Raheem Vergara M.D. Unavailable [...] Active Allergic rhinitis (477.9, J30.9) Status: Active Medications Name Dates Details ZyrTEC [...] PER DAY. * Quantity: 20 Refills: 0 Florian Vergara M.D.rey Raheem * Start 21-Oct-2016 End 24-Oct-2016 Active [...] 5040 Comments: *Culture in progress*Testing performed by [facility], [address] [place] [address] Testing performed by [facility], [address] [place] [address] *STREPTOCOCCUS SCREEN NEGATIVE for Streptococcus pyogenes Range: NEGATIVE for Streptococcus pyogenes 02-Oct-2016 14:13 THROAT CULTURE [id number] Comments: [facility] performed at: [place], [address] [place], [address], Pelt Shearer: Zelalem Duke D.O., MPHQuest Collection Date/Time: [id number] Results Received Date/Time: [id number] Reported Date/Time: [id number] CULTURE, THROAT SEE NOTE Comments: CULTURE, THROAT MICRO NUMBER: [id number] TEST STATUS: FINAL SPECIMEN SOURCE: THROAT SPECIMEN QUALITY: ADEQUATE RESULT: No oropharyngeal pathogens recovered.[CT] ----- 22-Oct-2016 13:45 ULTRASOUND GALL BLADDER Comments: Exam Date: 10/22/2016 13 :25Dictation Date: 10/22/2016 13:45 XS GALL BLADDER Plan of Care Name Dates Details Planned Observations Planned Goals not documented Planned Encounters Appointment; Provider: Schedule Radiology On 22-Oct-2016 13:30 Interventions Provided Medication Changes* Diphenoxylate-Atropine 2.5-0.025 MG [...] 21 Oct 2016 * ULTRASOUND GALL BLADDER; Done: Oct 22 2016 1:45PM Instructions Name Dates Details Instructions not documented Encounters Appointment; Jeb Duffy M.D. Encounter Diagnosis: Problem not documented On 30-Sep-2016 16:30 Appointment; Jeb Duffy M.D. Encounter Diagnosis: Problem not documented On 16-Jul-2016 10:00 Appointment; Gris Gamboa A.P.R.N. Encounter Diagnosis: Problem not documented On 09-Jul-2016 17:14 Appointment; Shannan Mckeon PMargaritaTYessenia Encounter Diagnosis: Problem not documented On 13-Jun-2016 [...] Problem not documented On 16-May-2015 17:55 Appointment; eJb Duffy M.D. Encounter Diagnosis: Problem not documented On 27-Apr-2015 15:00
--- OUTSIDE RECORDS SUMMARY | 2016-11-19 03:29 | XMS REPORT | Summary of Care ---
Author Author Gris Gamboa APRN Organization Unknown Address [address] [place] [phone] Phone Unavailable Care Team Providers Care Parcel Post Delivery Name Role Phone Gris Gamboa APRN Unavailable [...] upper respiratory infection (465.9, J06.9) Status: Active Medications Name Dates Details ZyrTEC [...] A DAY FOR 4 DAYS. * Quantity: 6 Refills: 1 Gris Gamboa APRN * Start 09-Jul-2016 Active Benzonatate 100 MG Oral Capsule TAKE 2 CAPSULES NEEDED UP TO THREE TIMES A DAY * Quantity: 60 Refills: 0 Gris Gamboa APRN * Start 09-Jul-2016 Active Allergies and Adverse Reactions Name Dates [...] smoked Vital Signs Date Test Result Details 09-Jul-2016 17:17 BP Systolic 138 mm[Hg] Status: [...] Details Instructions not documented Encounters Appointment; Shannan Mckeon, P.T.AMargarita Encounter Diagnosis: Problem not documented On 13-Jun-2016 [...]
--- OUTSIDE RECORDS SUMMARY | 2016-11-19 03:29 | XMS REPORT | Summary of Care ---
Author Author Mila Lomax Organization Unknown Address [address] [place] [address] Phone Unavailable Care Team Providers Care Broadcast Engineer Name Role Phone Monie Mila Unavailable Unavailable Tati Hunt, Jeb Unavailable Unavailable Jeb Duffy PP Unavailable Unavailable [...] Active Frontal sinusitis (473.1, J32.1) Status: Active Medications Name Dates Details ZyrTEC Allergy 10 MG Oral Capsule 1 q day prn Jeb Duffy M.D.* Started 28-Sep-2013 ActiveFluticasone Propionate 50 MCG/ACT Nasal Suspension USE 1 SPRAY IN EACH NOSTRIL TWICE DAILY. * Quantity: 1 Refills: 11 Jeb Duffy M.D.* Started 27-Apr-2015 ActiveDoxycycline Hyclate 100 MG Oral Tablet TAKE 1 TABLET TWICE DAILY. * Quantity: 10 Refills: 0 Kindracammie Mila * Started 16-May-2015 Active Allergies and Adverse Reactions Name Dates [...] smoked Vital Signs Date Test Result Details 16-May-2015 17:53 BP Systolic 122 mm[Hg] Status: BP Diastolic 80 mm[Hg] Status: Temperature 98.1 f Status: Heart Rate 90 /min Status: Respiration Rate 16 /min Status: Weight 213 lb Status: O2 SAT 98 % Status: Body Mass Index Calculated 35.45 kg/m2 Status: Body Surface Area Calculated 2.03 m2 Status: 27-Apr-2015 14:59 BP Systolic 120 mm[Hg] Status: BP Diastolic 78 mm[Hg] Status: Temperature 99.2 f Status: Heart Rate 84 /min Status: Respiration Rate 16 /min Status: Height 65 in Status: Weight 213 lb Status: Body Mass Index Calculated 35.45 kg/m2 Status: Body Surface Area Calculated 2.03 m2 Status: Results Date Description Value Details 26-Apr-2015 07:54 Urinalysis, reflex to Micro and Culture ([facility]) 8016 Comments: Fastin hours pH 6.5 (Better) [...] ml/min (Better) Range: >60 EST GFR, NON-AFR [place] >60 ml/min (Better) Range: >60 Comments: EST GFR is reported in ml/min per 1.73 m2 of body surface area. For -Austrian, please multiple result by 1.2.----- GLUCOSE 92 [...] Instructions * Instructions not documented Encounters Appointment; Mila Lomax Encounter Diagnosis: Problem not documented On 16-May-2015 17:55 Appointment; Jeb Duffy Encounter Diagnosis: Problem not documented On 27-Apr-2015 15:00 Appointment; Nae Masterson Encounter Diagnosis: Problem not documented On 12-Oct-2013 16:20 Appointment; Jeb Duffy Encounter Diagnosis: Problem not documented On 28-Sep-2013 16:00 Appointment; Jeb Duffy Encounter Diagnosis: Problem not documented On 06-Sep-2013 15:30
--- NOTE | 2016-11-19 04:10 | ERPDOC ---
Departure Disposition Decision Date: November 19, 2016 Disposition Decision Time: 05:45 Disposition: 01 DISCHARGED HOME, SELF-CARE Impression Impression Impression: Primary Impression: Spastic intestine Severity: Severe Condition: Improved Seen By: Physician only Patient Instructions: Abdominal Pain (ED) Problems/Meds/Labs Reviewed?: Yes Medications reviewed and manag: Yes Follow up care ordered?: Yes Mental Status: Alert, Oriented Scripts Prochlorperazine Maleate (Compazine) 10 Mg Tablet 10 MG PO QID, #30 TAB 0 Refills Prov: ROSALINA DICKERSON MD 11/19/16 HPI - Abdominal Pain General Chief Complaint: Abdominal Pain Stated Complaint: N/V,UPPER STOMACH PAIN Time Seen by Provider: 03:54 Source: patient, family History/Exam Limitations: no limitations HPI - Abdominal Pain Initial Comments Patient has had several hours of recurrence of her right upper quadrant abdominal pain associated with diarrhea and vomiting. Patient has had the same symptoms for many years on and off since she began having children, and over the past several months gotten to where she's having them every day. Has had multiple evaluations including a normal gallbladder sonogram, normal CT scan, normal EGD, normal hiatus scan, and normal ERCP. 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 After the patient took her second dose last night at midnight she began having worsening right upper quadrant abdominal pain that has been typical for her recurrent abdominal symptoms. Occurred At: home Onset: Rapid Duration: 4-6 hrs Quality: aching, cramping Location: RUQ Associated Symptoms: nausea/vomiting, DENIES: back pain, chest pain, diaphoresis, fatigue, fever/chills, headache, heartburn, rash, shortness of breath, swelling/mass in abdomen, syncope, weakness Hx of Similar Symptoms: Yes Allergies: Coded Allergies: amoxicillin (Verified Allergy, Severe, ANAPHYLACTIC SHOCK, 11/19/16) Past History Patient Medical History Problem List Updates: Recurrent right upper quadrant abdominal pain, vomiting, diarrhea Surgical History Denies Surgeries Social History Smoking Status: Never smoker Does patient use chewing tobac: No Second Hand Exposure: No Substance Use Type: does not use Alcohol Intake: none Record Review Pertinent history updated: Yes Review of Systems Constitutional Constitutional: DENIES: appetite decrease, appetite increase, chills, dizziness , fever, weakness ENMT Ears: DENIES: pain Hearing: DENIES: hearing loss, tinnitus Balance: DENIES: vertigo Mouth/Throat: DENIES: change in swallowing, change in voice, hoarsness, painful swallowing, sore throat Cardiovascular Cardiac: DENIES: chest pain, dyspnea on exertion Rhythm/Rate: DENIES: irregular beat, palpitations, tachycardia Vascular: DENIES: pedal edema Pulmonary Respiratory: DENIES: cough, dyspnea, pleuritic chest pain GI Upper Abdomen: nausea, pain, vomiting, DENIES: dysphagia, heartburn/indigestion Lower Abdomen: diarrhea, DENIES: blood in stool, constipation, pain General: DENIES: burning, dysuria, frequency, pain, urgency Musculoskeletal General: DENIES: cramps, joint pain, joint swelling, pain, weakness Integumentary Skin: DENIES: rash, sores Neurological General: DENIES: headache, numbness, tingling, vertigo, weakness Psychiatric Psychiatric: DENIES: anxiety, depression, nervousness Physical Exam General General Nourishment: well nourished, well developed, appears stated age, no acute distress General Body Habitus: well groomed Vitals and Pain First Documented Vital Signs Date Time Temp Pulse Resp B/P Pulse Ox O2 Delivery O2 Flow Rate FiO2 11/19/16 04:42 98.7 84 18 138/78 100 Room Air Weight: Kilograms: Height (feet): Height (inches): Triage Pain Scale: RN VS reviewed by Provider: Yes Normal Exams: Head: Normocephalic w/o trauma Eyes: Pupils are PERRLA w/ EOMI, No scleral icterus, irritation, or foreign bodies noted ENMT: No facial trauma, nasal exudates, pharyngeal erythema, or exudates are noted Neck: Full range of motion, without adenopathy, JVD, bruits or thyromegaly Chest/Resp: Clear all gracia, with good airflow, and symmetry bilaterally CV: Regular rate and rhythm, without murmur or gallop, Pulses 2+ all extremities, capillary refill, <2 seconds all ext., no pedal edema noted Lymphatic: No lymphadenopathy, or lymphedema noted Musculoskeletal: No tenderness, or deformity noted, good range of motion, all extremities Integumentary: No rashes, hives, or bruising noted, hair and nails, without abnormality Neurologic: Patient is alert, and oriented, cranial nerves, motor/sensory/ cerebellar, exams w/o gross deficits, to observation Psychiatric: Patient exhibits, appropriate attention, emotion and affect Abdomen (brief) Abdominal Brief: FOUND: soft, tender (moderate right upper quadrant tenderness without guarding or rebound), NOT FOUND: bowel normo active x4 (screen making technician bowel sounds throughout), distended, hepatosplenomegaly, pulsatile mass Progress Results/Orders Orders Procedure Category Date Status Time Prochlorperazine PHA 11/19/16 Complete (Compazine) 04:15 Ketorolac (Toradol) PHA 11/19/16 Complete 04:15 Normal Saline (Normal PHA 11/19/16 Complete Saline Iv) 04:15 Iv Lock (Ed Only) EDM 11/19/16 Transmitted 04:03 Cbc W/Auto LAB 11/19/16 Complete Diff-Reflex Manual Cmp - Comprehensive LAB 11/19/16 Complete Metabolic Lipase LAB 11/19/16 Complete Lab Results Laboratory Tests Test 11/19/16 05:04 White Blood Count 8.4T/MM3 Red Blood Count 4.04M/MM3 Hemoglobin 12.1GM/DL Hematocrit 35.6% Mean Corpuscular Volume 88.1UM3 Mean Corpuscular Hemoglobin 30.0UUG Mean Corpuscular Hemoglobin Concent 34.0GM/DL RDW Standard Deviation 39.7FL Platelet Count 302T/MM3 Mean Platelet Volume 11.0UM3 Immature Granulocyte % (Auto) 0.2% Neutrophils (%) (Auto) 58.6% Lymphocytes (%) (Auto) 29.6% Monocytes (%) (Auto) 7.0% Eosinophils (%) (Auto) 4.0% Basophils (%) (Auto) 0.6% Absolute Immature Granulocyte (auto 0.02T/MM3 Absolute Neutrophils (auto) 4.9T/MM3 Absolute Lymphocytes (auto) 2.5T/MM3 Absolute Monocytes (auto) 0.6T/MM3 Absolute Eosinophils (auto) 0.3T/MM3 Absolute Basophils (auto) 0.1T/MM3 Turbidity < 20 Sodium Level 146MEQ/L Potassium Level 4.0MEQ/L Chloride Level 113MEQ/L Carbon Dioxide Level 20MEQ/L Anion Gap 13MEQ/L Blood Urea Nitrogen 7.0MG/DL Creatinine 0.5MG/DL Glomerular Filtration Rate Calc 141 BUN/Creatinine Ratio 14RATIO Glucose Level 93MG/DL Calculated Osmolality 279MOSM/KG Calcium Level 9.1MG/DL Total Bilirubin 0.60MG/DL Icterus Index < 2 Aspartate Amino Transf (AST/SGOT) 22U/L Alanine Aminotransferase (ALT/SGPT) 42U/L Alkaline Phosphatase 52U/L Total Protein 6.6G/DL Albumin 3.8G/DL Globulin 2.8G/DL Albumin/Globulin Ratio 1.4RATIO Lipase 29U/L Chemistry Specimen Hemolysis 28 Medications Current ED Medications Prochlorperazine Edisylate (Compazine) 10 mg O ONCE IV Last administered on 04:49; Start 11/19/16 at 04:15; Stop 11/19/16 at 04:16; Status DC Ketorolac Tromethamine 30 mg 30 mg O ONCE IV Last administered on 11/19/16 04 :52; Start 11/19/16 at 04:15; Stop 11/19/16 at 04:16; Status DC Sodium Chloride (Normal Saline IV) 1,000 ml @ 0 mls/hr Q0M ONCE IV Last administered on 11/19/16 04:49; Start 11/19/16 at 04:15; Stop 11/19/16 at 04:16 ; Status DC Progress Progress Patient given 1 L normal saline IV fluid bolus, Compazine 10 mg, and Toradol 30 mg IV - to relief CBC - N CMP/L - N ROSALINA DICKERSON MD November 19, 2016 04:10
[2016-11-19] MEDS ORDERED: NORMAL SALINE 1,000 ML IV ONE (04:15)
[2016-11-19] MEDS ORDERED: PROCHLORPERAZINE 10mg/2ml INJECTION IV ONE (04:15)
[2016-11-19] MEDS ORDERED: KETOROLAC 30mg/ml INJECTION IV ONE (04:15)
--- NOTE | 2016-11-19 04:20 | NUR ---
UNSUCCESSFUL IV UNSUCCESSFUL IV ATTEMPT WITH VEIN FINDER. CONTACTED APPETIZER PACKER TO SEE IF SHE CAN START AN IV
--- NOTE | 2016-11-19 04:36 | NUR ---
STATUS OPERATING ROOM MANAGER HERE IN ROOM TO ATTEMPT IV
[2016-11-19 04:42] VITALS: Ht 165.1 cm; Wt 6.5 kg
[2016-11-19 05:12] LABS: BASOPHILS # (AUTO) 0.1 T/MM3 (0-0.2); BASOPHILS % (AUTO) 0.6 % (0-2); EOSINOPHILS # (AUTO) 0.3 T/MM3 (0-0.5); HCT - HEMATOCRIT 35.6 % (36-46); HGB - HEMOGLOBIN 12.1 GM/DL (12-16); IMMATURE GRANULOCYTE # (AUTO) 0.02 T/MM3 (0.00-0.03); IMMATURE GRANULOCYTE % (AUTO) 0.2 % (0.0-0.5); LYMPHOCYTES # (AUTO) 2.5 T/MM3 (1-4.8); LYMPHOCYTES % (AUTO) 29.6 % (23-45); MEAN CORPUSCULAR VOLUME 88.1 UM3 (80-100); MONOCYTES # (AUTO) 0.6 T/MM3 (0-0.8); NEUTROPHILS #(AUTO)-ABSOLUTE 4.9 T/MM3 (1.8-7.7); NEUTROPHILS % (AUTO) 58.6 % (33-66); RED BLOOD COUNT 4.04 M/MM3 (4.00-5.20); WBC - WHITE BLOOD COUNT 8.4 T/MM3 (4.5-11.0)
--- OUTSIDE RECORDS SUMMARY | 2016-11-19 05:13 | XMS REPORT | Continuity of Care Document ---
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 Visit Date/Time Discharge Status Pt. Type Provider Facility Loc./Unit Complaint [id number] 05/01/2015 17:58:00 05/01/2015 23: 59:59 CLS [facility]
[2016-11-19 05:24] LABS: ALBUMIN 3.8 G/DL (3.5-5.0); ALBUMIN/GLOBULIN RATIO 1.4 RATIO (1.1-2.2); ALKALINE PHOSPHATASE 52 U/L (38-126); ALT (SGPT) 42 U/L (9-52); ANION GAP 13 MEQ/L (5-15); AST (SGOT) 22 U/L (14-36); BUN/CREATININE RATIO 14 RATIO (6-26); CALCIUM 9.1 MG/DL (8.4-10.2); CHLORIDE 113 MEQ/L (98-107); CO2 - CARBON DIOXIDE 20 MEQ/L (22-30); CREATININE 0.5 MG/DL (0.7-1.2); GLOMERULAR FILTRATION RATE 141; GLUCOSE 93 MG/DL (65-110); LIPASE 29 U/L (23-300); SODIUM 146 MEQ/L (134-144); TOTAL PROTEIN 6.6 G/DL (6.3-8.2)
[2016-11-19] MEDS ORDERED: PROC-14 PO (05:47)
[2016-11-19] MEDS ORDERED: PROCHLORPERAZINE 10MG (PrePack) SENT HOME ONE (06:00)
[2016-11-19 06:04] VITALS: BP 131/77; PULSE 79; RESP 16; TEMP 98.2; O2SAT 96
--- NOTE | 2016-11-19 06:04 | NUR ---
DEPART PT IS DISCHARGED AT THIS TIME, INSTRUCTIONS ARE REIVEWED AND UNDERSTANDING IS VOICED. PT LEAVES AMBULATORY.
== END 2016-11-19 06:04 | disposition home or self-care (01) ==
LOC: ED 03:22
DX: K58.0 Irritable bowel syndrome with diarrhea (principal)
CPT/HCPCS: 36416; 80053; 83690; 85025; 96361; 96374; 96375; 99284; J0780; J1885; J7030